=== PATIENT | male | born 1930 | race Caucasian/White ===

== ENCOUNTER 2016-09-26 16:44 | Emergency (ER) | payer MEDICARE ==
[2016-09-26] MEDS ORDERED: Aspirin 81 MG Tab.Chew PO ONE (18:30)
--- NOTE | 2016-09-26 18:32 | PCM.HP ---
H&P History of Present Illness - General Date of Service: 09/26/16 Admit Problem/Dx: Admission Diagnosis/Problem Admission Diagnosis/Problem CHF, Congestive heart failure Source of Information: Patient History Limitations: Reports: No limitations - History of Present Illness Initial Comments - Free Text/Narative: This is an 85yo M with history of CHF here for increasing sob, and swelling that started acutely this am. Patient does have chronic leg edema and swelling but has been having some issues with increased weight and swelling despite adjustment of his diuretics. Patient denies history of NC and denies any chest pain or pressure. Patient has a history of A-fib and is on Coumadin. Onset of Symptoms: Reports: sudden Symptom Onset Date: 09/26/16 Duration of Symptoms: Reports: Hour(s):, Getting worse Location: Reports: chest Severity: moderate Improves with: Reports: None Worsens with: Reports: None Associated Symptoms: Reports: shortness of breath - Related Data Allergies/Adverse Reactions: Allergies Allergy/AdvReac Type Severity Reaction Status Date / Time No Known Allergies Allergy Verified 01/27/15 15:29 Home Medications: Home Meds Antiox#10/Om3/DHA/EPA/Lut/Zeax [I-Caps with Lutein-[place] 3 SFG] 1 each PO DAILY 01/27/15 [History] Budesonide/Formoterol [Symbicort 160-4.5 MCG] 2 inh INH DAILY 01/27/15 [History] Digoxin [Digoxin] 1 tab PO DAILY 01/27/15 [History] Diltiazem HCl [Diltiazem 24Hr ER] 1 tab PO DAILY 01/27/15 [History] Furosemide [Furosemide] 1 tab PO DAILY 01/27/15 [History] Lisinopril/Hydrochlorothiazide [Lisinopril-Hctz 20-25 mg Tab] 1 each PO DAILY [History] Multivitamin [Daily Vitamin] 1 tab PO DAILY 01/27/15 [History] Simvastatin [Simvastatin] 1 tab PO DAILY 01/27/15 [History] Tamsulosin [Flomax] 1 cap PO DAILY 01/27/15 [History] Warfarin Sodium 5 mg PO DAILY 01/27/15 [History] Social & Family History - Tobacco Use Smoking Status *Q: Former Smoker Years of Tobacco use: 50 - Alcohol Use Number of Drinks Per Day: 1 - Recreational Drug Use Recreational Drug Use: No H&P Review of Systems - Review of Systems: Review Of Systems: See Below General: Reports: weakness HEENT: Reports: no symptoms Pulmonary: Reports: shortness of breath Cardiovascular: Reports: dyspnea on exertion, edema Gastrointestinal: Reports: No symptoms Genitourinary: Reports: no symptoms Musculoskeletal: Reports: no symptoms Psychiatric: Reports: no symptoms Neurological: Reports: no symptoms Exam - Exam Exam: See Below - Vital Signs Vital Signs: Last Vital Signs Temp 37.7 C 09/26/16 17:23 Pulse 91 09/26/16 17:23 Resp 40 H 09/26/16 17:23 BP 147/84 H 09/26/16 17:23 Pulse Ox 95 09/26/16 17:23 Weight: 98.883 kg - Exam General: alert, cooperative HEENT: PERRLA, Conjunctiva clear, EOMI Neck: supple, trachea midline Lungs: Decreased breath sounds, Crackles, Rhonchi Cardiovascular: irregular rhythm Abdomen: normal bowel sounds, soft Back Exam: normal inspection Extremities: edema Skin: warm, dry, intact Neuro Extensive - Mental Status: alert, oriented x3, normal mood/affect, memory intact - Patient Data Result Diagrams: 09/26/16 17:00 09/26/16 17:00 *Q Meaningful Use (ADM) - VTE *Q VTE Criteria *Q: - Stroke *Q Stroke Criteria *Q: - AMI *Q AMI Criteria *Q: - Problem List (1) CHF (congestive heart failure) SNOMED Code(s): 91806031 ICD Code: I50.9 - HEART FAILURE, UNSPECIFIED Status: Acute Priority: High Current Visit: Yes (2) Leg edema SNOMED Code(s): 308662465 ICD Code: R60.0 - LOCALIZED EDEMA Status: Chronic Priority: High Current Visit: Yes (3) Elevated troponin I level SNOMED Code(s): 986126666 ICD Code: R79.89 - OTHER SPECIFIED ABNORMAL FINDINGS OF BLOOD CHEMISTRY Status: Acute Priority: High Current Visit: Yes (4) SOB (shortness of breath) SNOMED Code(s): 198174029 ICD Code: R06.02 - SHORTNESS OF BREATH Status: Acute Priority: High Current Visit: Yes (5) Elevated brain natriuretic peptide (BNP) level SNOMED Code(s): 029520629 ICD Code: R79.89 - OTHER SPECIFIED ABNORMAL FINDINGS OF BLOOD CHEMISTRY Status: Acute Priority: High Current Visit: Yes Problem List Initiated/Reviewed/Updated: Yes Orders Last 24hrs: Active Orders 24 hr Category Date Time Status EKG Documentation Completion [RC] ASDIRECTED Care 09/26/16 17:06 Active Cardiac Diet [Heart Healthy Diet] [DIET] Diet 09/26/16 Breakfast Ordered Echo Comp wo Cont [US] Timed Exams 09/27/16 08:00 Ordered Assessment/Plan Comment:: Patient counseled on elevated troponin measurement. Discussed labs and report with Dr. Singh. Patient to be transferred to [facility] for further management and workup. Patient agrees with plan. Discussed code status and he would like everything done but does not want to live on life support.
[2016-09-26] MEDS ORDERED: Sodium Chloride 0.9% 1,000 ML IV SCH (19:00)
[2016-09-26 20:01] VITALS: BP 134/61
--- NOTE | 2016-09-27 10:26 | CR ---
DATE OF SERVICE: 09/26/16 CLINICAL DATA: SOB. AP PORTABLE CHEST: Comparison is made to a prior exam dated 08/06/12 The heart is enlarged. It has increased in size from the prior exam. There is calcification of the aortic arch. 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 There is moderate size right pleural effusion and there is a small left pleural effusion. There is atelectasis and consolidation in the right lower lung. Pneumonia should be considered. There is increased density in the left lung base, consistent with basilar atelectasis or infiltrate and pneumonia again should be considered. 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 The exam is otherwise unchanged from the prior. [id number] [facility]
--- NOTE | 2016-09-28 13:17 | PCM.DCSUM1 ---
Discharge Summary - Discharge Data Discharge Date: 10/24/16 Discharge Disposition: DC/Tfer to Acute Hospital 02 Condition: Stable - Discharge Diagnosis/Problem(s) (1) CHF (congestive heart failure) SNOMED Code(s): 05943309 ICD Code: I50.9 - HEART FAILURE, UNSPECIFIED Status: Acute Priority: High (2) Leg edema SNOMED Code(s): 963541439 ICD Code: R60.0 - LOCALIZED EDEMA Status: Chronic Priority: High (3) Elevated troponin I level SNOMED Code(s): 953994989 ICD Code: R79.89 - OTHER SPECIFIED ABNORMAL FINDINGS OF BLOOD CHEMISTRY Status: Acute Priority: High (4) SOB (shortness of breath) SNOMED Code(s): 689119385 ICD Code: R06.02 - SHORTNESS OF BREATH Status: Acute Priority: High (5) Elevated brain natriuretic peptide (BNP) level SNOMED Code(s): 910308387 ICD Code: R79.89 - OTHER SPECIFIED ABNORMAL FINDINGS OF BLOOD CHEMISTRY Status: Acute Priority: High - Patient Instructions Diet: Heart Healthy Diet Activity: As Tolerated Driving: Do Not Drive - Discharge Plan Home Medications: Home Meds Antiox#10/Om3/DHA/EPA/Lut/Zeax [I-Caps with Lutein-[place] 3 SFG] 1 each PO DAILY 01/27/15 [History] Budesonide/Formoterol [Symbicort 160-4.5 MCG] 2 inh INH DAILY 01/27/15 [History] Digoxin [Digoxin] 1 tab PO DAILY 01/27/15 [History] Diltiazem HCl [Diltiazem 24Hr ER] 1 tab PO DAILY 01/27/15 [History] Furosemide [Furosemide] 1 tab PO DAILY 01/27/15 [History] Lisinopril/Hydrochlorothiazide [Lisinopril-Hctz 20-25 mg Tab] 1 each PO DAILY [History] Multivitamin [Daily Vitamin] 1 tab PO DAILY 01/27/15 [History] Simvastatin [Simvastatin] 1 tab PO DAILY 01/27/15 [History] Tamsulosin [Flomax] 1 cap PO DAILY 01/27/15 [History] Warfarin Sodium 5 mg PO DAILY 01/27/15 [History] Forms: ED Department Discharge Referrals: PCP,None [Primary Care Provider] - - Discharge Summary/Plan Comment DC Time >30 min.: Yes Discharge Summary/Plan Comment: Counseled on transfer and management. Patient to be transferred to Dr. Singh with Cardiology on consult. Patient and family agree with plan and to travel with patient via [facility] rig. All questions answered. - Patient Data Vitals - Most Recent: Last Vital Signs Temp 37.7 C 09/26/16 19:59 Pulse 71 09/26/16 19:59 Resp 36 H 09/26/16 19:59 BP 134/61 09/26/16 19:59 Pulse Ox 96 09/26/16 19:59 Weight - Most Recent: 98.883 kg Med Orders - Current: Current Medications Discontinued Medications Aspirin (Aspirin) 324 mg PO ONETIME ONE Stop: 09/26/16 18:31 Last Admin: 09/26/16 18:32 Dose: 324 mg Sodium Chloride (Normal Saline) 1,000 mls @ 0 mls/hr IV ASDIRECTED KIMBERLY PRN Reason: KVO Stop: 09/30/16 18:57 *Q Meaningful Use (DIS) - VTE *Q VTE Criteria *Q: - Stroke *Q Stroke Criteria *Q: - AMI *Q AMI Criteria *Q:
== END 2016-09-26 18:56 ==
LOC: LB.ED 16:44 → UNDOADMIN 17:02 → LB.MS 17:02 → LB.ED 18:56
DX: I50.9 Heart failure, unspecified (principal); R60.0 Localized edema; R79.89 Other specified abnormal findings of blood chemistry; Z79.01 Long term (current) use of anticoagulants; Z79.899 Other long term (current) drug therapy; Z87.891 Personal history of nicotine dependence; I48.91 Unspecified atrial fibrillation
CPT/HCPCS: 36415; 51702; 71010; 80053; 81001; 83880; 84443; 84484; 85025; 93005; 99285; A0425; A0429; A9270

== ENCOUNTER 2016-10-09 09:42 | Inpatient (IN) | payer MEDICARE ==
[2016-10-09] MEDS ORDERED: Bisacodyl 5 MG Tab PO PRN ×2 (15:39→20:14)
[2016-10-09] MEDS ORDERED: Sodium Chloride 0.65% Nasal Spray 45 ML Bottle NASBOTH PRN ×2 (15:49→20:14)
[2016-10-09] MEDS: metroNIDAZOLE 500 MG Tab PO SCH (19:23)
[2016-10-09] MEDS: Carvedilol 6.25 MG Tab PO SCH (19:23)
[2016-10-09] MEDS: Ipratropium 0.02% 0.5 MG/2.5 ML Neb Soln INH SCH (20:12)
[2016-10-09] MEDS: Levalbuterol HCl 1.25 MG/0.5 ML Neb INH SCH (20:12)
[2016-10-09] MEDS: Acetaminophen 325 MG Tab PO PRN (20:13)
[2016-10-09] MEDS ORDERED: Tuberculin, PPD 5 Units/0.1 ML 1 ML MDV IDERM ONE (20:13)
[2016-10-09] MEDS: Melatonin 3 MG Tab PO PRN (20:13)
[2016-10-09] MEDS: Bumetanide 2 MG Tab PO SCH (20:13)
[2016-10-09] MEDS ORDERED: Acetaminophen 650 MG Tab.ER PO PRN (20:14)
[2016-10-09] MEDS ORDERED: diphenhydrAMINE 25 MG Cap PO PRN (20:14)
[2016-10-09] MEDS: diphenhydrAMINE 25 MG Cap PO PRN (20:14)
[2016-10-09] MEDS ORDERED: Melatonin 3 MG Tab PO PRN (20:14)
[2016-10-09] MEDS: Budesonide/Formoterol 16-4.5 MCG/Puff 10.2 GM Inhaler INH SCH (20:15)
--- NOTE | 2016-10-09 20:23 | PCM.HP ---
H&P History of Present Illness - General Date of Service: 10/09/16 Admit Problem/Dx: Admission Diagnosis/Problem Admission Diagnosis/Problem Pain management Source of Information: Patient History Limitations: Reports: No limitations - History of Present Illness Initial Comments - Free Text/Narative: Pt is a 85 year old male with acute on chronic CHF , with right middle lobe pneumonia with Cdiff colitis, who was transferred from [facility] today for Rehabilitation. Pt stools presently are solid and formed. No more diarrhea, is on last day of flagyl. CHF is well controlled. Pt has no complaints. - Related Data Allergies/Adverse Reactions: Allergies Allergy/AdvReac Type Severity Reaction Status Date / Time No Known Allergies Allergy Verified 10/09/16 10:28 Home Medications: Home Meds Budesonide/Formoterol [Symbicort 160-4.5 MCG] 1 inh INH BID 01/27/15 [History] Digoxin [Digoxin] 1 tab PO DAILY 01/27/15 [History] Diltiazem HCl [Diltiazem 24Hr ER] 1 tab PO DAILY 01/27/15 [History] Warfarin Sodium 5 mg PO DAILY 01/27/15 [History] Acetaminophen [Acetaminophen 8 Hour] 650 mg PO Q4H PRN 10/09/16 [History] Bisacodyl [Dulcolax] 5 mg PO DAILY PRN 10/09/16 [History] Bumetanide [Bumex] 2 mg PO BID 10/09/16 [History] Carvedilol 6.25 mg PO BID 10/09/16 [History] Ipratropium/Albuterol Sulfate [Iprat-Albut 0.5-3(2.5) MG/3 ML] 3 ml IH TID 10/09 [History] Levalbuterol HCl [Xopenex] 0.63 mg IH TID 10/09/16 [History] Melatonin 3 mg PO BEDTIME PRN 10/09/16 [History] Metolazone 2.5 mg PO DAILY 10/09/16 [History] Sodium Chloride [Saline Nasal [place]] 2 inh NASBOTH Q2H PRN 10/09/16 [History] diphenhydrAMINE [Benadryl] 25 mg PO BEDTIME PRN 10/09/16 [History] metroNIDAZOLE [Flagyl] 500 mg PO TID 10/09/16 [History] Past Medical History HEENT History: Reports: Other (see below) Other HEENT History: oral candiasis Cardiovascular History: Reports: Afib, Heart Failure, IN Other Cardiovascular History: CHF, HTN. +3 edema to BLE Respiratory History: Reports: COPD Other Gastrointestinal History: C-diff Genitourinary History: Reports: BPH Hematologic History: Reports: Anemia Other Dermatologic History: mili lower legs skin dry and reddened. RLE wrapped with bandage, reports oozing at times. Wrap with dried, crusty, olu colored drainage. - Infectious Disease History Infectious Disease History: Reports: C-difficile - Past Surgical History HEENT Surgical History: Reports: None Cardiovascular Surgical History: Reports: None Respiratory Surgical History: Reports: None GI Surgical History: Reports: None Male Surgical History: Reports: None Dermatological Surgical History: Reports: None Social & Family History - Family History Family Medical History: Noncontributory - Tobacco Use Smoking Status *Q: Former Smoker Years of Tobacco use: 40 Packs/Tins Daily: 0.2 Used Tobacco, but Quit: Yes Month Tobacco Last Used: unable to remember Tobacco Use Comment: Quit 30 years ago. Second Hand Smoke Exposure: No - Caffeine Use Caffeine Use: Reports: Coffee Caffeine Use Comment: 2 cups of coffee - Alcohol Use Number of Drinks Per Day: 0 Date of Last Drink: 02/28/16 - Recreational Drug Use Recreational Drug Use: No H&P Review of Systems - Review of Systems: Review Of Systems: See Below General: Denies: fever, chills, diaphoresis HEENT: Denies: dysphasia, headaches, rhinitis, sore throat Pulmonary: Denies: shortness of breath, wheezing, cough, sputum Cardiovascular: Denies: chest pain, palpitations, lightheadedness Gastrointestinal: Denies: Abdominal pain, Difficulty swallowing, Flatus, Nausea , Vomiting Genitourinary: Denies: dysuria, frequency, pain Musculoskeletal: Denies: shoulder pain, arm pain, joint pain, joint swelling Skin: Denies: cyanosis, pruritis, rash Psychiatric: Denies: confusion, depression Neurological: Denies: confusion, dizziness, headache, seizure, syncope Hematologic/Lymphatic: Denies: easy bleeding, easy bruising Exam - Exam Exam: See Below - Vital Signs Vital Signs: Last Vital Signs Temp 98.2 F 10/09/16 16:10 Pulse 78 10/09/16 19:23 Resp 16 10/09/16 16:10 BP 132/74 10/09/16 19:23 Pulse Ox Weight: 85.185 kg - Exam General: alert, oriented, 4 HEENT: PERRLA, Hearing intact, Mucosa moist & pink, Nares patent, Normal nasal septum, Posterior pharynx clear, Conjunctiva clear, EOMI, EACs clear, TMs clear Neck: supple, trachea midline, 2 Lungs: Clear to auscultation, Normal respiratory effort Cardiovascular: regular rate, irregular rhythm Abdomen: normal bowel sounds, soft Extremities: normal inspection, edema (1+) Peripheral Pulses: 2+: carotid (L), carotid (R), radial (L), radial (R) Skin: warm, intact Neurological: cranial nerves intact, reflexes equal bilateral Neuro Extensive - Mental Status: alert, oriented x3, normal mood/affect, normal cognition *Q Meaningful Use (ADM) - VTE *Q VTE Criteria *Q: - VTE Risk Assess *Q Other Thrombophilia Type: pt has atrial fib. - Stroke *Q Stroke Criteria *Q: - AMI *Q AMI Criteria *Q: - Problem List (1) Weakness generalized SNOMED Code(s): 23828927 ICD Code: R53.1 - WEAKNESS Status: Acute Current Visit: Yes (2) CHF (congestive heart failure) SNOMED Code(s): 28346704 ICD Code: I50.9 - HEART FAILURE, UNSPECIFIED Status: Acute Priority: High Current Visit: No (3) Colitis due to Clostridium difficile SNOMED Code(s): 771171432 ICD Code: A04.7 - ENTEROCOLITIS DUE TO CLOSTRIDIUM DIFFICILE Status: Acute Current Visit: Yes Problem List Initiated/Reviewed/Updated: Yes Orders Last 24hrs: Active Orders 24 hr Category Date Time Status Patient Status [ADT] Routine ADT 10/09/16 20:13 Ordered Consult to Infection Prevention [CONS] Routine Cons 10/09/16 20:13 Ordered Consult to Physical Therapy [PT Evaluation and Cons 10/09/16 15:10 Active Treatment] [CONS] Routine OT Evaluation and Treatment [CONS] Routine Cons 10/09/16 15:11 Active OT Evaluation and Treatment [CONS] Routine Cons 10/09/16 20:13 Ordered PT Evaluation and Treatment [CONS] Routine Cons 10/09/16 20:13 Ordered Regular Diet [DIET] Diet 10/09/16 Dinner Ordered CULTURE MRSA SURVEY [RM] Routine Lab 10/09/16 16:43 Received Acetaminophen [Tylenol Arthritis Pain] Med 10/09/16 20:14 Ordered 650 mg PO Q4H PRN Acetaminophen [Tylenol] Med 10/09/16 15:39 Active 650 mg PO Q4H PRN Albuterol/Ipratropium [DuoNeb 3.0-0.5 MG/3 ML] Med 10/10/16 08:00 Ordered 3 ml NEB TID Bisacodyl [Dulcolax] Med 10/09/16 15:39 Active 5 mg PO DAILY PRN Bisacodyl [Dulcolax] Med 10/09/16 20:14 Ordered 5 mg PO DAILY PRN Budesonide/Formoterol Fumarate Med 10/10/16 08:00 Ordered 1 inh INH BID Budesonide/Formoterol [Symbicort 160-4.5 MCG] Med 10/09/16 20:00 Active 0 - 1 gm INH BID Bumetanide [Bumex] Med 10/09/16 20:00 Active 2 mg PO BID Bumetanide [Bumex] Med 10/10/16 08:00 Ordered 2 mg PO BID Carvedilol [Coreg] Med 10/10/16 08:00 Ordered 6.25 mg PO BID Carvedilol [Coreg] Med 10/09/16 17:00 Active 6.25 mg PO BIDMEALS Digoxin [Lanoxin] Med 10/10/16 08:00 Ordered 1 tab PO DAILY Digoxin [Lanoxin] Med 10/10/16 08:00 Active 125 mcg PO DAILY Diltiazem [Cardizem CD] Med 10/10/16 08:00 Ordered 1 tab PO DAILY Diltiazem [Cardizem CD] Med 10/10/16 08:00 Active 240 mg PO DAILY Ipratropium [Atrovent] Med 10/09/16 20:00 Active 0.5 mg INH TID Levalbuterol HCl [Xopenex] Med 10/10/16 08:00 Ordered 0.63 mg IH TID Levalbuterol HCl [Xopenex] Med 10/09/16 20:00 Active 1.25 mg INH TID Melatonin Med 10/09/16 15:46 Active 3 mg PO BEDTIME PRN Melatonin Med 10/09/16 20:14 Ordered 3 mg PO BEDTIME PRN Metolazone [Metolazone] Med 10/10/16 08:00 Ordered 2.5 mg PO DAILY Metolazone [Zaroxolyn] Med 10/10/16 08:00 Active 2.5 mg PO DAILY Sodium Chloride 0.65% [[place] Nasal [place]] Med 10/09/16 15:49 Active 0 - 2 ml NASBOTH Q2H PRN Sodium Chloride 0.65% [[place] Nasal [place]] Med 10/09/16 20:14 Ordered 2 inh NASBOTH Q2H PRN Tuberculin, PPD [Aplisol] Med 10/09/16 20:13 Once 5 unit IDERM ONETIME ONE Warfarin [Coumadin] Med 10/10/16 08:00 Ordered 5 mg PO DAILY Warfarin [Coumadin] Med 10/09/16 18:00 Active 6 mg PO DAILY@1800 diphenhydrAMINE [Benadryl] Med 10/09/16 15:44 Active 25 mg PO BEDTIME PRN diphenhydrAMINE [Benadryl] Med 10/09/16 20:14 Ordered 25 mg PO BEDTIME PRN metroNIDAZOLE [Flagyl] Med 10/10/16 08:00 Ordered 500 mg PO TID metroNIDAZOLE [Flagyl] Med 10/09/16 18:00 Active 500 mg PO TIDMEALS Resuscitation Status Routine Resus Stat 10/09/16 20:13 Ordered Medication Orders Acetaminophen (Tylenol) 650 mg PO Q4H PRN PRN Reason: MILD PAIN Last Admin: 10/09/16 20:13 Dose: 650 mg Acetaminophen (Tylenol Arthritis Pain) 650 mg PO Q4H PRN PRN Reason: mild pain Bisacodyl (Dulcolax) 5 mg PO DAILY PRN PRN Reason: CONSTIPATION Bisacodyl (Dulcolax) 5 mg PO DAILY PRN PRN Reason: Constipation Budesonide/Formoterol Fumarate (Symbicort 160-4.5 Mcg) 0 - 1 gm INH BID [facility] Last Admin: 10/09/16 20:15 Dose: 1 puff Bumetanide (Bumex) 2 mg PO BID [facility] Last Admin: 10/09/16 20:13 Dose: 2 mg Bumetanide (Bumex) 2 mg PO BID [facility] Carvedilol (Coreg) 6.25 mg PO BIDMEALS [facility] Last Admin: 10/09/16 19:23 Dose: 6.25 mg Carvedilol (Coreg) 6.25 mg PO BID [facility] Digoxin (Lanoxin) 125 mcg PO DAILY [facility] Digoxin (Lanoxin) mcg PO DAILY [facility] Diltiazem HCl (Cardizem Cd) 240 mg PO DAILY [facility] Diphenhydramine HCl (Benadryl) 25 mg PO BEDTIME PRN PRN Reason: ITCHING/INSOMNIA Last Admin: 10/09/16 20:14 Dose: 25 mg Diphenhydramine HCl (Benadryl) 25 mg PO BEDTIME PRN PRN Reason: Insomnia Ipratropium [place] (Atrovent) 0.5 mg INH TID [facility] Last Admin: 10/09/16 20:12 Dose: 0.5 mg Levalbuterol HCl (Xopenex) 1.25 mg INH TID [facility] Last Admin: 10/09/16 20:12 Dose: 1.25 mg Melatonin (Melatonin) 3 mg PO BEDTIME PRN PRN Reason: INSOMNIA Last Admin: 10/09/16 20:13 Dose: 3 mg Melatonin (Melatonin) 3 mg PO BEDTIME PRN PRN Reason: Insomnia Metolazone (Zaroxolyn) 2.5 mg PO DAILY [facility] Metronidazole (Flagyl) 500 mg PO TIDMEALS [facility] Stop: 10/10/16 20:00 Last Admin: 10/09/16 19:23 Dose: 500 mg Non-Formulary Medication (Budesonide/Formoterol Fumarate) 1 inh INH BID [facility] Sodium Chloride ([place] Nasal [place]) 0 - 2 ml NASBOTH Q2H PRN PRN Reason: CONGESTION Sodium Chloride ([place] Nasal [place]) ml NASBOTH Q2H PRN PRN Reason: Congestion Tuberculin PPD (Aplisol) 5 unit IDERM ONETIME ONE Stop: 10/09/16 20:14 Warfarin Sodium (Coumadin) 6 mg PO DAILY@1800 [facility] Last Admin: 10/09/16 19:23 Dose: 6 mg Assessment/Plan Comment:: ASSS: Generalized weakness- deconditioning CHF C diff colitis improving Plan: Plan is to continue patient medication as prescribed at the time of discharge. Will keep patient on C diff isolation. His last dose of flagyl is tomorrow. Will start patient on OT and PT evaluation in Am. Pt does have moderate aortic stenosis, for which he might need out patient cardiology consult once he is discharged. Will recheck CBC and BMP in 3 days for followup on renal function and hemoglobin.
[2016-10-10] MEDS: Ipratropium 0.02% 0.5 MG/2.5 ML Neb Soln INH SCH ×3 (07:34→20:08)
[2016-10-10] MEDS ORDERED: Digoxin 125 MCG Tab PO SCH (08:00)
[2016-10-10] MEDS ORDERED: Carvedilol 6.25 MG Tab PO SCH (08:00)
[2016-10-10] MEDS ORDERED: Warfarin 5 MG Tab PO SCH (08:00)
[2016-10-10] MEDS ORDERED: LEVALBUTEROL HCL 0.63 MG IH SCH (08:00)
[2016-10-10] MEDS ORDERED: Albuterol/Ipratropium 3.0-0.5 MG/3 ML Neb Soln NEB SCH (08:00)
[2016-10-10] MEDS ORDERED: METOLAZONE 2.5 MG PO SCH (08:00)
[2016-10-10] MEDS ORDERED: FORMOTEROL FUMARATE INH SCH (08:00)
[2016-10-10] MEDS ORDERED: BUDESONIDE INH SCH (08:00)
[2016-10-10] MEDS ORDERED: Bumetanide 2 MG Tab PO SCH (08:00)
[2016-10-10] MEDS ORDERED: metroNIDAZOLE 500 MG Tab PO SCH (08:00)
[2016-10-10] MEDS ORDERED: Diltiazem 240 MG Cap.CD PO SCH (08:00)
[2016-10-10] MEDS: Metolazone 5 MG Tab PO SCH (08:01)
[2016-10-10] MEDS: Carvedilol 6.25 MG Tab PO SCH ×2 (08:02→17:15)
[2016-10-10] MEDS: metroNIDAZOLE 500 MG Tab PO SCH ×3 (08:02→17:14)
[2016-10-10] MEDS: Bumetanide 2 MG Tab PO SCH ×2 (08:02→20:08)
[2016-10-10] MEDS: Diltiazem 240 MG Cap.CD PO SCH (08:02)
[2016-10-10] MEDS: Digoxin 125 MCG Tab PO SCH (08:02)
[2016-10-10] MEDS: Budesonide/Formoterol 16-4.5 MCG/Puff 10.2 GM Inhaler INH SCH ×2 (08:03→20:30)
[2016-10-10] MEDS: Levalbuterol HCl 1.25 MG/0.5 ML Neb INH SCH ×3 (08:06→20:08)
[2016-10-10] MEDS: Fluticasone Propionate Nasal Spray 16 GM Bottle NASBOTH SCH (15:26)
[2016-10-10] MEDS: Melatonin 3 MG Tab PO PRN (20:09)
[2016-10-10] MEDS: diphenhydrAMINE 25 MG Cap PO PRN (20:09)
[2016-10-10] MEDS: Acetaminophen 325 MG Tab PO PRN (20:09)
[2016-10-11] MEDS: Metolazone 5 MG Tab PO SCH (08:07)
[2016-10-11] MEDS: Carvedilol 6.25 MG Tab PO SCH ×2 (08:07→16:43)
[2016-10-11] MEDS: Diltiazem 240 MG Cap.CD PO SCH (08:08)
[2016-10-11] MEDS: Fluticasone Propionate Nasal Spray 16 GM Bottle NASBOTH SCH (08:08)
[2016-10-11] MEDS: Digoxin 125 MCG Tab PO SCH (08:08)
[2016-10-11] MEDS: Bumetanide 2 MG Tab PO SCH ×2 (08:08→16:42)
[2016-10-11] MEDS: Budesonide/Formoterol 16-4.5 MCG/Puff 10.2 GM Inhaler INH SCH ×2 (08:09→21:23)
[2016-10-11] MEDS: Levalbuterol HCl 1.25 MG/0.5 ML Neb INH SCH ×2 (08:09→16:51)
[2016-10-11] MEDS: Ipratropium 0.02% 0.5 MG/2.5 ML Neb Soln INH SCH ×2 (08:10→16:51)
[2016-10-12] MEDS: Metolazone 5 MG Tab PO SCH (08:06)
[2016-10-12] MEDS: Digoxin 125 MCG Tab PO SCH (08:06)
[2016-10-12] MEDS: Carvedilol 6.25 MG Tab PO SCH ×2 (08:07→17:22)
[2016-10-12] MEDS: Diltiazem 240 MG Cap.CD PO SCH (08:07)
[2016-10-12] MEDS: Bumetanide 2 MG Tab PO SCH ×2 (08:08→15:14)
[2016-10-12] MEDS: Fluticasone Propionate Nasal Spray 16 GM Bottle NASBOTH SCH (08:08)
[2016-10-12] MEDS: Budesonide/Formoterol 16-4.5 MCG/Puff 10.2 GM Inhaler INH SCH ×2 (08:08→21:00)
[2016-10-12] MEDS: Levalbuterol HCl 1.25 MG/0.5 ML Neb INH SCH ×4 (08:08→21:20)
[2016-10-12] MEDS: Ipratropium 0.02% 0.5 MG/2.5 ML Neb Soln INH SCH ×4 (09:16→21:16)
[2016-10-13] MEDS: Melatonin 3 MG Tab PO PRN (02:31)
[2016-10-13] MEDS: diphenhydrAMINE 25 MG Cap PO PRN (02:31)
[2016-10-13] MEDS: Bumetanide 2 MG Tab PO SCH ×2 (09:31→16:31)
[2016-10-13] MEDS: Ipratropium 0.02% 0.5 MG/2.5 ML Neb Soln INH SCH ×3 (09:31→20:22)
[2016-10-13] MEDS: Carvedilol 6.25 MG Tab PO SCH ×2 (09:31→16:47)
[2016-10-13] MEDS: Fluticasone Propionate Nasal Spray 16 GM Bottle NASBOTH SCH (09:32)
[2016-10-13] MEDS: Diltiazem 240 MG Cap.CD PO SCH (09:32)
[2016-10-13] MEDS: Budesonide/Formoterol 16-4.5 MCG/Puff 10.2 GM Inhaler INH SCH (09:33)
[2016-10-13] MEDS: Digoxin 125 MCG Tab PO SCH (09:33)
[2016-10-13] MEDS: Metolazone 5 MG Tab PO SCH (09:34)
[2016-10-13] MEDS: Levalbuterol HCl 1.25 MG/0.5 ML Neb INH SCH ×3 (09:34→20:22)
[2016-10-14] MEDS: Budesonide/Formoterol 16-4.5 MCG/Puff 10.2 GM Inhaler INH SCH ×3 (08:00→21:22)
[2016-10-14] MEDS: Bumetanide 2 MG Tab PO SCH (09:25)
[2016-10-14] MEDS: Diltiazem 240 MG Cap.CD PO SCH (09:25)
[2016-10-14] MEDS: Ipratropium 0.02% 0.5 MG/2.5 ML Neb Soln INH SCH ×2 (09:26→21:11)
[2016-10-14] MEDS: Carvedilol 6.25 MG Tab PO SCH (09:26)
[2016-10-14] MEDS: Metolazone 5 MG Tab PO SCH (09:27)
[2016-10-14] MEDS: Digoxin 125 MCG Tab PO SCH (09:27)
[2016-10-14] MEDS: Levalbuterol HCl 1.25 MG/0.5 ML Neb INH SCH ×2 (09:27→21:11)
[2016-10-14] MEDS: Bisacodyl 5 MG Tab PO SCH (21:20)
[2016-10-15] MEDS: Ipratropium 0.02% 0.5 MG/2.5 ML Neb Soln INH SCH ×3 (08:11→21:00)
[2016-10-15] MEDS: Fluticasone Propionate Nasal Spray 16 GM Bottle NASBOTH SCH (08:12)
[2016-10-15] MEDS: Levalbuterol HCl 1.25 MG/0.5 ML Neb INH SCH ×4 (08:12→21:00)
[2016-10-15] MEDS: Bumetanide 2 MG Tab PO SCH ×2 (08:13→15:00)
[2016-10-15] MEDS: Carvedilol 6.25 MG Tab PO SCH ×2 (08:14→20:01)
[2016-10-15] MEDS: Digoxin 125 MCG Tab PO SCH (08:16)
[2016-10-15] MEDS: Budesonide/Formoterol 16-4.5 MCG/Puff 10.2 GM Inhaler INH SCH ×2 (08:16→21:02)
[2016-10-15] MEDS: Metolazone 5 MG Tab PO SCH (08:16)
[2016-10-15] MEDS: Diltiazem 240 MG Cap.CD PO SCH (08:16)
[2016-10-15] MEDS: Bisacodyl 5 MG Tab PO SCH (21:01)
[2016-10-16] MEDS: Bumetanide 2 MG Tab PO SCH ×2 (07:47→15:35)
[2016-10-16] MEDS: Metolazone 5 MG Tab PO SCH (07:48)
[2016-10-16] MEDS: Levalbuterol HCl 1.25 MG/0.5 ML Neb INH SCH (07:49)
[2016-10-16] MEDS: Ipratropium 0.02% 0.5 MG/2.5 ML Neb Soln INH SCH (07:49)
[2016-10-16] MEDS: Digoxin 125 MCG Tab PO SCH (07:49)
[2016-10-16] MEDS: Carvedilol 6.25 MG Tab PO SCH (07:50)
[2016-10-16] MEDS: Diltiazem 240 MG Cap.CD PO SCH (07:51)
[2016-10-16] MEDS: Budesonide/Formoterol 16-4.5 MCG/Puff 10.2 GM Inhaler INH SCH (08:04)
[2016-10-16] MEDS: Fluticasone Propionate Nasal Spray 16 GM Bottle NASBOTH SCH (08:04)
[2016-10-16 10:57] VITALS: BP 133/66
--- NOTE | 2016-10-16 15:46 | PCM.DCSUM1 ---
Discharge Summary - Hospital Course Free Text/Narrative:: Pt was admitted to [facility] for rehab after acute on chronic CHF with right lower lobe pneumonia from [facility] on 10/09/16. Pt has done well with therapy. He has been able to walk aorund with his walker and does not get short of breath. he has been able to reach his home goals that he did before. He has no cough or shortness of breath either. As therapy has cleared him he has been planned for discharge. Brief History: Pt was [facility] acute CHF and right lwoer lobe pneumonia for rehabiliation before discharge home. - Discharge Data Discharge Date: 10/16/16 Discharge Disposition: Home, Self-Care 01 Condition: Good - Discharge Diagnosis/Problem(s) (1) Weakness generalized SNOMED Code(s): 89973517 ICD Code: R53.1 - WEAKNESS Status: Acute Current Visit: Yes (2) CHF (congestive heart failure) SNOMED Code(s): 05989944 ICD Code: I50.9 - HEART FAILURE, UNSPECIFIED Status: Acute Priority: High Current Visit: No (3) Colitis due to Clostridium difficile SNOMED Code(s): 725549206 ICD Code: A04.7 - ENTEROCOLITIS DUE TO CLOSTRIDIUM DIFFICILE Status: Acute Current Visit: Yes - Patient Summary/Data Consults: Consultations 10/09/16 15:10 Consult to Physical Therapy [PT Evaluation and Treatment] [CONS] Routine Please Evaluate and Treat. PT Reason for Consult: Strengthening This query below is only for informational purposes and is not editable. 10/09/16 15:11 OT Evaluation and Treatment [CONS] Routine Please Evaluate and Treat. OT Reason for Consult: ADL's This query below is only for informational purposes and is not editable. 10/09/16 20:13 Consult to Infection Prevention [CONS] Routine Comment: Physician Instructions: OT Evaluation and Treatment [CONS] Routine Please Evaluate and Treat. OT Reason for Consult: ADL's This query below is only for informational purposes and is not editable. Admission Diagnosis/Problem: Pain management PT Evaluation and Treatment [CONS] Routine Please Evaluate and Treat. PT Reason for Consult: Strengthening This query below is only for informational purposes and is not editable. Admission Diagnosis/Problem: Pain management - Patient Instructions Diet: Heart Healthy Diet Fluid Restriction: 1500 mL Activity: As Tolerated Showering/Bathing: November Shower - Discharge Plan Prescriptions/Med Rec: Bumetanide [Bumex] 2 mg PO BID@0800,1500 #60 tablet Home Medications: Home Meds Budesonide/Formoterol [Symbicort 160-4.5 MCG] 1 inh INH BID 01/27/15 [History] Digoxin 1 tab PO DAILY 01/27/15 [History] Diltiazem HCl [Diltiazem 24Hr ER] 1 tab PO DAILY 01/27/15 [History] Warfarin Sodium 5 mg PO DAILY 01/27/15 [History] Acetaminophen [Acetaminophen 8 Hour] 650 mg PO Q4H PRN 10/09/16 [History] Bisacodyl [Dulcolax] 5 mg PO DAILY PRN 10/09/16 [History] Bumetanide [Bumex] 2 mg PO BID 10/09/16 [History] Carvedilol 6.25 mg PO BID 10/09/16 [History] Ipratropium/Albuterol Sulfate [Iprat-Albut 0.5-3(2.5) MG/3 ML] 3 ml IH TID 10/09 [History] Levalbuterol HCl [Xopenex] 0.63 mg IH TID 10/09/16 [History] Melatonin 3 mg PO BEDTIME PRN 10/09/16 [History] Metolazone 2.5 mg PO DAILY 10/09/16 [History] Sodium Chloride [Saline Nasal [place]] 2 inh NASBOTH Q2H PRN 10/09/16 [History] diphenhydrAMINE [Benadryl] 25 mg PO BEDTIME PRN 10/09/16 [History] Bisacodyl [Dulcolax] 10 mg PO BEDTIME tablet 10/16/16 [Rx] Bumetanide [Bumex] 2 mg PO BID@0800,1500 #60 tablet 10/16/16 [Rx] Carvedilol [Coreg] 6.25 mg PO BIDMEALS tablet 10/16/16 [Rx] Digoxin [Lanoxin] 125 mcg PO DAILY tablet 10/16/16 [Rx] Diltiazem [Cardizem CD] 240 mg PO DAILY cap.cd 10/16/16 [Rx] Fluticasone Propionate [Flonase] 0 - 2 gm NASBOTH DAILY bottle 10/16/16 [Rx] Ipratropium [Atrovent] 0.5 mg INH TID neb 10/16/16 [Rx] Melatonin 3 mg PO BEDTIME PRN #0 tablet 10/16/16 [Rx] Metolazone [Zaroxolyn] 2.5 mg PO DAILY tablet 10/16/16 [Rx] Warfarin [Coumadin] 6 mg PO DAILY@1800 tablet 10/16/16 [Rx] Patient Handouts: Edema, Heart Failure, [id number], Heart Failure - Discharge Summary/Plan Comment DC Time >30 min.: Yes Discharge Summary/Plan Comment: Continue home meds. Followup in 1 wk for recheck - General Info Date of Service: 10/16/16 Functional Status: Reports: tolerating diet, ambulating, urinating - Review of Systems General: Denies: Fever, Weakness HEENT: Denies: dysphasia, ear pain, post nasal drip, sinus congestion Pulmonary: Denies: shortness of breath, hemoptysis, wheezing Cardiovascular: Denies: Chest Pain, Lightheadedness Gastrointestinal: Denies: Abdominal pain, Nausea, Vomiting Genitourinary: Denies: dysuria, frequency Musculoskeletal: Denies: neck pain, shoulder pain, joint pain, joint swelling Skin: Denies: pruritis, rash Neurological: Denies: Confusion, Dizziness, Headache, Seizure, Syncope, Difficulty Walking, Weakness, Gait Disturbance Psychiatric: Denies: confusion, depression - Patient Data Vitals - Most Recent: Last Vital Signs Temp 98.0 F 10/16/16 08:00 Pulse 78 10/16/16 08:00 Resp 18 10/16/16 08:00 BP 133/66 10/16/16 08:00 Pulse Ox 95 10/16/16 08:00 Weight - Most Recent: 80.558 kg I&O - Last 24 hours: Intake & Output 10/16/16 10/16/16 10/16/16 06:59 14:59 22:59 Intake Total 300 Output Total 775 Balance -475 Med Orders - Current: Current Medications Acetaminophen (Tylenol) 650 mg PO Q4H PRN PRN Reason: MILD PAIN Last Admin: 10/10/16 20:09 Dose: 650 mg Bisacodyl (Dulcolax) 5 mg PO DAILY PRN PRN Reason: CONSTIPATION Bisacodyl (Dulcolax) 10 mg PO BEDTIME [facility] Last Admin: 10/15/16 21:01 Dose: 10 mg Budesonide/Formoterol Fumarate (Symbicort 160-4.5 Mcg) 0 - 1 gm INH BID [facility] Last Admin: 10/16/16 08:04 Dose: 1 puff Bumetanide (Bumex) 2 mg PO BID@0800,1500 [facility] Last Admin: 10/16/16 15:35 Dose: 2 mg Carvedilol (Coreg) 6.25 mg PO BIDMEALS [facility] Last Admin: 10/16/16 07:50 Dose: 6.25 mg Digoxin (Lanoxin) 125 mcg PO DAILY [facility] Last Admin: 10/16/16 07:49 Dose: 125 mcg Diltiazem HCl (Cardizem Cd) 240 mg PO DAILY [facility] Last Admin: 10/16/16 07:51 Dose: 240 mg Diphenhydramine HCl (Benadryl) 25 mg PO BEDTIME PRN PRN Reason: ITCHING/INSOMNIA Last Admin: 10/13/16 02:31 Dose: 25 mg Fluticasone Propionate (Flonase) 0 - 2 gm NASBOTH DAILY [facility] Last Admin: 10/16/16 08:04 Dose: 1 spray Ipratropium [place] (Atrovent) 0.5 mg INH TID [facility] Last Admin: 10/16/16 07:49 Dose: 0.5 mg Levalbuterol HCl (Xopenex) 1.25 mg INH TID [facility] Last Admin: 10/16/16 07:49 Dose: 1.25 mg Melatonin (Melatonin) 3 mg PO BEDTIME PRN PRN Reason: INSOMNIA Last Admin: 10/13/16 02:31 Dose: 3 mg Metolazone (Zaroxolyn) 2.5 mg PO DAILY [facility] Last Admin: 10/16/16 07:48 Dose: 2.5 mg Sodium Chloride ([place] Nasal [place]) 0 - 2 ml NASBOTH Q2H PRN PRN Reason: CONGESTION Last Admin: 10/10/16 07:35 Dose: 1 spray Warfarin Sodium (Coumadin) 6 mg PO DAILY@1800 [facility] Last Admin: 10/15/16 18:00 Dose: 6 mg Discontinued Medications Acetaminophen (Tylenol Arthritis Pain) 650 mg PO Q4H PRN PRN Reason: mild pain Albuterol/Ipratropium (Duoneb 3.0-0.5 Mg/3 Ml) 3 ml NEB TID [facility] Bisacodyl (Dulcolax) 5 mg PO DAILY PRN PRN Reason: Constipation Bumetanide (Bumex) 2 mg PO BID [facility] Last Admin: 10/11/16 08:08 Dose: 2 mg Bumetanide (Bumex) 2 mg PO BID [facility] Carvedilol (Coreg) 6.25 mg PO BID [facility] Digoxin (Lanoxin) mcg PO DAILY [facility] Diltiazem HCl (Cardizem Cd) mg PO DAILY [facility] Diphenhydramine HCl (Benadryl) 25 mg PO BEDTIME PRN PRN Reason: Insomnia Melatonin (Melatonin) 3 mg PO BEDTIME PRN PRN Reason: Insomnia Metronidazole (Flagyl) 500 mg PO TIDMEALS [facility] Stop: 10/10/16 20:00 Last Admin: 10/10/16 17:14 Dose: 500 mg Metronidazole (Flagyl) 500 mg PO TID [facility] Non-Formulary Medication (Budesonide/Formoterol Fumarate) 1 inh INH BID [facility] Non-Formulary Medication (Levalbuterol Hcl [Xopenex]) 0.63 mg IH TID [facility] Non-Formulary Medication (Metolazone [Metolazone]) 2.5 mg PO DAILY [facility] Sodium Chloride ([place] Nasal [place]) ml NASBOTH Q2H PRN PRN Reason: Congestion Tuberculin PPD (Aplisol) 5 unit IDERM ONETIME ONE Stop: 10/09/16 20:14 Last Admin: 10/10/16 16:28 Dose: 5 unit Warfarin Sodium (Coumadin) 5 mg PO DAILY [facility] - Exam General: Reports: alert, oriented HEENT: Reports: Pupils equal, Pupils reactive, EOMI, Mucous membr. moist/pink Neck: Reports: supple Lungs: Reports: Clear to auscultation, Normal respiratory effort Cardiovascular: Reports: Regular Rate, Regular Rhythm Abdomen: Reports: bowel sounds present, soft, no tenderness, no distension Extremities: Reports: edema (chronic pitting typeboth legs. In benjamin wrap dressing ) Skin: Reports: warm, intact Neurological: Reports: no new focal deficit *Q Meaningful Use (DIS) - VTE *Q VTE Criteria *Q: - Stroke *Q Stroke Criteria *Q: - AMI *Q AMI Criteria *Q:
== END 2016-10-16 15:50 | disposition home or self-care (01) | DRG 948 ==
LOC: LB.MS 14:02 → UNDOADMIN 14:02 → LB.MS 20:13
PROVIDERS: ADMIT Family Medicine; ATTEND Family Medicine
DX: R53.1 Weakness (principal); A04.7 Enterocolitis due to Clostridium difficile; I11.0 Hypertensive heart disease with heart failure; I50.9 Heart failure, unspecified; I48.91 Unspecified atrial fibrillation; Z79.01 Long term (current) use of anticoagulants; I25.2 Old myocardial infarction; H44.9 Unspecified disorder of globe; N40.0 Benign prostatic hyperplasia without lower urinary tract symptoms; I35.0 Nonrheumatic aortic (valve) stenosis; Z87.891 Personal history of nicotine dependence
CPT/HCPCS: 36415; 80048; 85025; 85610; 86580; 97110-GO; 97110-GP; 97116-GP; 97161-GP; 97165-GO; 97530-GO; 97535-GO; A9270-GY

== ENCOUNTER 2017-08-06 16:59 | Emergency (ER) | payer MEDICARE ==
[2017-08-06] MEDS ORDERED: Aspirin 81 MG Tab.Chew ONE (17:50)
[2017-08-06] MEDS ORDERED: Furosemide 40 MG/4 ML VIAL ONE (17:50)
--- NOTE | 2017-08-06 18:26 | EDM.PDOC ---
ED HPI GENERAL MEDICAL PROBLEM - General Chief Complaint: Cardiovascular Problem Stated Complaint: elevated troponin Time Seen by Provider: 08/06/17 16:59 Source of Information: Reports: Patient, Family History Limitations: Reports: No Limitations - History of Present Illness INITIAL COMMENTS - FREE TEXT/NARRATIVE: This is a 86yo M here for increased leg swelling and shortness of breath with generalized weakness. Patient has been unable to have a BM for the past 3-4 days and has a decreased appetite. Patient denies any chest pain but has decreased urine output. Patient was seen in the clinic and worked up for CHF and found to have acute on chronic renal failure worsening CHF and elevated troponins. Onset: Gradual Duration: Day(s):, Getting Worse Location: Reports: Lower Extremity, Left, Lower Extremity, Right, Generalized Severity: Moderate Improves with: Reports: None Worsens with: Reports: None - Related Data Allergies Allergy/AdvReac Type Severity Reaction Status Date / Time No Known Allergies Allergy Verified 10/09/16 10:28 Home Meds: Home Meds Budesonide/Formoterol [Symbicort 160-4.5 MCG] 1 inh INH BID 01/27/15 [History] Digoxin 1 tab PO DAILY 01/27/15 [History] Diltiazem HCl [Diltiazem 24Hr ER] 1 tab PO DAILY 01/27/15 [History] Warfarin Sodium 5 mg PO DAILY 01/27/15 [History] Acetaminophen [Acetaminophen 8 Hour] 650 mg PO Q4H PRN 10/09/16 [History] Bisacodyl [Dulcolax] 5 mg PO DAILY PRN 10/09/16 [History] Bumetanide [Bumex] 2 mg PO BID 10/09/16 [History] Carvedilol 6.25 mg PO BID 10/09/16 [History] Ipratropium/Albuterol Sulfate [Iprat-Albut 0.5-3(2.5) MG/3 ML] 3 ml IH TID 10/09 [History] Levalbuterol HCl [Xopenex] 0.63 mg IH TID 10/09/16 [History] Melatonin 3 mg PO BEDTIME PRN 10/09/16 [History] Metolazone 2.5 mg PO DAILY 10/09/16 [History] Sodium Chloride [Saline Nasal [place]] 2 inh NASBOTH Q2H PRN 10/09/16 [History] diphenhydrAMINE [Benadryl] 25 mg PO BEDTIME PRN 10/09/16 [History] Bisacodyl [Dulcolax] 10 mg PO BEDTIME tablet 10/16/16 [Rx] Bumetanide [Bumex] 2 mg PO BID@0800,1500 #60 tablet 10/16/16 [Rx] Carvedilol [Coreg] 6.25 mg PO BIDMEALS tablet 10/16/16 [Rx] Digoxin [Lanoxin] 125 mcg PO DAILY tablet 10/16/16 [Rx] Diltiazem [Cardizem CD] 240 mg PO DAILY cap.cd 10/16/16 [Rx] Fluticasone Propionate [Flonase] 0 - 2 gm NASBOTH DAILY bottle 10/16/16 [Rx] Ipratropium [Atrovent] 0.5 mg INH TID neb 10/16/16 [Rx] Melatonin 3 mg PO BEDTIME PRN #0 tablet 10/16/16 [Rx] Metolazone [Zaroxolyn] 2.5 mg PO DAILY tablet 10/16/16 [Rx] Warfarin [Coumadin] 6 mg PO DAILY@1800 tablet 10/16/16 [Rx] Past Medical History HEENT History: Reports: Other (See Below) Other HEENT History: oral candiasis Cardiovascular History: Reports: Afib, Heart Failure, [place] Other Cardiovascular History: CHF, HTN. +3 edema to BLE Respiratory History: Reports: COPD Other Gastrointestinal History: C-diff Genitourinary History: Reports: BPH Hematologic History: Reports: Anemia Other Dermatologic History: mili lower legs skin dry and reddened. RLE wrapped with bandage, reports oozing at times. Wrap with dried, crusty, olu colored drainage. - Infectious Disease History Infectious Disease History: Reports: C-Difficile - Past Surgical History HEENT Surgical History: Reports: None Cardiovascular Surgical History: Reports: None Respiratory Surgical History: Reports: None GI Surgical History: Reports: None Male Surgical History: Reports: None Dermatological Surgical History: Reports: None Social & Family History - Family History Family Medical History: Noncontributory - Tobacco Use Smoking Status *Q: Former Smoker Years of Tobacco use: 40 Packs/Tins Daily: 0.2 Used Tobacco, but Quit: Yes Month Tobacco Last Used: unable to remember Second Hand Smoke Exposure: No - Caffeine Use Caffeine Use: Reports: Coffee Caffeine Use Comment: 2 cups of coffee - Alcohol Use Number of Drinks Per Day: 0 - Recreational Drug Use Recreational Drug Use: No ED ROS GENERAL - Review of Systems Review Of Systems: ROS reveals no pertinent complaints other than HPI. ED EXAM, GENERAL - Physical Exam Exam: See Below Exam Limited By: No Limitations General Appearance: Alert, WD/WN, Mild Distress Eye Exam: Bilateral Eye: EOMI, PERRL Ears: Normal External Exam Nose: Normal Inspection Throat/Mouth: Normal Inspection Head: Atraumatic, Normocephalic Neck: Normal Inspection Respiratory/Chest: No Respiratory Distress, Rales Cardiovascular: Normal Peripheral Pulses, Other (b/l leg and ankle edema) GI/Abdominal: Soft, Non-Tender, Abnormal Bowel Sounds (decreased Bowel sounds) Extremities: Pedal Edema Psychiatric: Normal Affect, Normal Mood Skin Exam: Warm, Dry, Intact Course - Orders/Labs/Meds Meds: Medications Discontinued Medications Generic Name Dose Route Start Last Admin Trade Name Viviana PRN Reason Stop Dose Admin Aspirin Confirm 08/06/17 17:50 08/06/17 18:07 Aspirin Administered 08/06/17 17:51 162 mg Dose Administration 162 mg .ROUTE .STK-MED ONE Furosemide Confirm 08/06/17 17:50 08/06/17 18:07 Lasix Administered 08/06/17 17:51 40 mg Dose Administration 40 mg .ROUTE .STK-MED ONE Departure - Departure Time of Disposition: 19:30 Disposition: DC/Tfer to Acute Hospital 02 Reason for Transfer *Q: Other Condition: Undetermined Clinical Impression: Acute coronary syndrome, Elevated troponin I level, Elevated brain natriuretic peptide (BNP) level, Weakness generalized Congestive heart disease Qualifiers: Congestive heart failure type: unspecified congestive heart failure type Congestive heart failure chronicity: chronic Qualified Code(s): I50.9 - Heart failure, unspecified Referrals: PCP,None [Primary Care Provider] - Forms: ED Department Discharge - Problem List & Annotations (1) CHF (congestive heart failure) SNOMED Code(s): 66554314 Code(s): I50.9 - HEART FAILURE, UNSPECIFIED Status: Acute Priority: High Current Visit: Yes Qualifiers: Congestive heart failure type: unspecified congestive heart failure type Congestive heart failure chronicity: chronic Qualified Code(s): I50.9 - Heart failure, unspecified (2) Leg edema SNOMED Code(s): 737236066 Code(s): R60.0 - LOCALIZED EDEMA Status: Chronic Priority: High Current Visit: No (3) Elevated troponin I level SNOMED Code(s): 550410362 Code(s): R79.89 - OTHER SPECIFIED ABNORMAL FINDINGS OF BLOOD CHEMISTRY Status: Acute Priority: High Current Visit: Yes (4) Elevated brain natriuretic peptide (BNP) level SNOMED Code(s): 192373443 Code(s): R79.89 - OTHER SPECIFIED ABNORMAL FINDINGS OF BLOOD CHEMISTRY Status: Acute Priority: High Current Visit: Yes (5) Weakness generalized SNOMED Code(s): 01897792 Code(s): R53.1 - WEAKNESS Status: Acute Priority: High Current Visit: Yes (6) Acute coronary syndrome SNOMED Code(s): 935520855 Code(s): I24.9 - ACUTE ISCHEMIC HEART DISEASE, UNSPECIFIED Status: Acute Priority: High Current Visit: Yes - Problem List Review Problem List Initiated/Reviewed/Updated: Yes - Assessment/Plan Plan: Patient was on hold in ER until Bed available in [place]. Patient will be transferred under Dr. Nelson's care via [facility].
== END 2017-08-06 20:15 ==
LOC: LB.ED 16:59
DX: I24.9 Acute ischemic heart disease, unspecified (principal); R79.89 Other specified abnormal findings of blood chemistry; I11.0 Hypertensive heart disease with heart failure; I50.9 Heart failure, unspecified; J44.9 Chronic obstructive pulmonary disease, unspecified; Z87.891 Personal history of nicotine dependence; Z79.01 Long term (current) use of anticoagulants; Z79.899 Other long term (current) drug therapy; M25.50 Pain in unspecified joint; R63.0 Anorexia; K59.00 Constipation, unspecified; R53.81 Other malaise; R53.83 Other fatigue; I48.91 Unspecified atrial fibrillation
CPT/HCPCS: 36415; 51702; 71046; 74018; 80053; 83880; 84484; 85025; 85610; 87804; 93005; 99284; A9270; J1940; J7040